=== PATIENT | female | born 1970 | race Caucasian/White ===

== ENCOUNTER 2017-03-27 13:01 | Emergency (ER) | payer SELFPAY ==
[~2017-03-27] VITALS: Ht 175.3 cm; Wt 63.0 kg
[2017-03-27 13:03] VITALS: BP 113/57; PULSE 86; RESP 18; TEMP 97.7; O2SAT 100
[2017-03-27] MEDS ORDERED: SODIUM CHLORIDE 0.9% FLUSH 10 ML FLUSH IVF PRN (13:45)
[2017-03-27] MEDS ORDERED: HYDROmorphone HCL PF 1 MG/ML VIAL IV PUSH ONE (13:45)
[2017-03-27] MEDS ORDERED: ONDANSETRON HCL 4 MG/2 ML VIAL IV PUSH ONE (13:45)
--- NOTE | 2017-03-27 13:45 | PD ---
HPI . Bleeding in Chief Complaint: Related Problem Time Seen by Provider: 13:14 Travel History International Travel<30 days: No Contact w/Intl Traveler<30days: No Traveled to known affect area: No History of Present Illness HPI This patient presents with the chief complaint of heavy vaginal bleeding in . She states that she is approximately 8 weeks . She states that she successfully just had some spotting this morning but that the spotting quickly became heavy bleeding. It is associated with pelvic cramping. She rates the pain 9/10. No modifying factors. PFSH Past Medical History Asthma: Yes ("slight") Anxiety: Yes Diminished Hearing: No Headaches: Yes Musculoskeletal: Yes (RIGHT HIP,FEMUR, ANKLE FX, chronic back pain) Respiratory: Yes (asthma) Immunizations Current: Yes Migraines: Yes ?: Menopausal: Yes : 1 Para: 1 Miscarriage: 0 : 0 Past Surgical History Joint Replacement: Yes (RIGHT HIP) Other Surgery: Yes (1987,fractured femur,harsha placed harsha removed in 2006) Social History Alcohol Use: No Tobacco Use: Yes (1ppd) Substance Use: No Allergies-Medications (Allergen,Severity, Reaction): Coded Allergies: diphenhydramine (Unverified Allergy, Severe, "liquid benadryl,difficulty breathing", 03/27/17) morphine (Unverified Adverse Reaction, Severe, nausea, 03/27/17) Reported Meds & Prescriptions Reported Meds & Active Scripts Active No Active Prescriptions or Reported Medications Review of Systems Except as stated in HPI: all other systems reviewed are Neg Genitourinary: Positive: Pelvic Pain, Vaginal Bleeding Physical Exam Narrative GENERAL: Awake and alert and in no acute distress. SKIN: Good color and capillary refill. HEAD: Normocephalic/atraumatic. EYES: Pupils are equal. Extraocular movements are intact. NECK: Supple. CARDIOVASCULAR: Regular rate and rhythm. RESPIRATORY: Nonlabored respirations. DEHYDRATION UNIT OPERATOR: Blood and blood clots in the vaginal vault. Os is closed. Positive cervical motion tenderness. Tender in the left adnexal/uterine area MUSCULOSKELETAL: Atraumatic NEUROLOGICAL: Nonfocal PSYCHIATRIC: Appropriate mood and affect. Data Data Last Documented VS Vital Signs Date Time Temp Pulse Resp B/P (MAP) Pulse Ox O2 Delivery O2 Flow Rate FiO2 03/27/17 13:03 97.7 86 18 113/57 (75) 100 Room Air Orders Orders Beta Hcg (Quant/Titer) (03/27/17 13:32) Us Pelvis (Ques Pr/Ect)W Trans (03/27/17 ) Urinalysis - C+S If Indicated (03/27/17 13:32) Iv Access Insert/Monitor (03/27/17 13:32) Sodium Chloride 0.9% Flush (Ns Flush) (03/27/17 13:45) Ed Urine Pregnancytest Poc (03/27/17 13:32) Ed Poc Ultrasound (03/27/17 13:32) Ondansetron Inj (Zofran Inj) (03/27/17 13:45) Hydromorphone Pf Inj (Dilaudid Pf Inj) (03/27/17 13:45) Hydromorphone Pf Inj (Dilaudid Pf Inj) (03/27/17 14:15) Ed Discharge Order (03/27/17 16:48) Labs Laboratory Tests Test 03/27/17 13:15 03/27/17 13:45 Urine Color YELLOW Urine Turbidity CLEAR Urine pH 5.5 Urine Specific [place] 1.024 Urine Protein TRACE mg/dL Urine Glucose (UA) NEG mg/dL Urine Ketones NEG mg/dL Urine Occult Blood LARGE Urine Nitrite NEG Urine Bilirubin NEG Urine Urobilinogen LESS THAN 2.0 MG/DL Urine Leukocyte Esterase NEG Urine RBC /hpf Urine WBC 2 /hpf Urine Squamous Epithelial Cells 1 /hpf Urine Mucus FEW /lpf Microscopic Urinalysis Comment CULT NOT INDICATED Human Chorionic Gonadotropin, Quant [id number] MIU/ML MDM Medical Decision Making Medical Screen Exam Complete: Yes Emergency Medical Condition: Yes Medical Record Reviewed: Yes (she is O+) Differential Diagnosis Differential diagnosis of vaginal bleeding includes but is not limited to dysfunctional uterine bleeding, normal menstrual cycle, ectopic , spontaneous AB, PID. Narrative Course This patient presents with heavy vaginal bleeding. She is being worked up for possible miscarriage or ectopic. UA is negative for infection. Quant 25K. US pending. Verbal report from the chemical treatment plant technician is that there is no intrauterine seen. She reports that she was able to adequately visualize the left adnexal area and that there is a small cyst but no ectopic. This patient has most likely had a spontaneous AB. I will have her follow-up in 2 days for a repeat quantitative hCG. This patient is not interested in waiting for the formal ultrasound report. Procedures Procedure Narrative Emergency Department Pelvic ultrasound was performed with patient consent. The curvilinear probe was used in the transverse and sagittal views within the suprapubic region revealing no intrauterine . Diagnosis Primary Impression: Spontaneous miscarriage Referrals: [facility] Patient Instructions: General Instructions, Miscarriage (DC) Additional Instructions: Follow-up for repeat blood test in 2 days Scripts No Active Prescriptions or Reported Meds Disposition: 01 DISCHARGE HOME Condition: Stable Sarai Cuellar MD Mar 27, 2017 13:45
--- NOTE | 2017-03-27 13:45 | PD ---
HPI . Bleeding in Chief Complaint: Related Problem Time Seen by Provider: 13:14 Travel History International Travel<30 days: No Contact w/Intl Traveler<30days: No Traveled to known affect area: No History of Present Illness HPI This patient presents with the chief complaint of heavy vaginal bleeding in . She states that she is approximately 8 weeks . She states that she successfully just had some spotting this morning but that the spotting quickly became heavy bleeding. It is associated with pelvic cramping. She rates the pain 9/10. No modifying factors. PFSH Past Medical History Asthma: Yes ("slight") Anxiety: Yes Diminished Hearing: No Headaches: Yes Musculoskeletal: Yes (RIGHT HIP,FEMUR, ANKLE FX, chronic back pain) Respiratory: Yes (asthma) Immunizations Current: Yes Migraines: Yes ?: Menopausal: Yes : 1 Para: 1 Miscarriage: 0 : 0 Past Surgical History Joint Replacement: Yes (RIGHT HIP) Other Surgery: Yes (1987,fractured femur,harsha placed harsha removed in 2006) Social History Alcohol Use: No Tobacco Use: Yes (1ppd) Substance Use: No Allergies-Medications (Allergen,Severity, Reaction): Coded Allergies: diphenhydramine (Unverified Allergy, Severe, "liquid benadryl,difficulty breathing", 03/27/17) morphine (Unverified Adverse Reaction, Severe, nausea, 03/27/17) Reported Meds & Prescriptions Reported Meds & Active Scripts Active No Active Prescriptions or Reported Medications Review of Systems Except as stated in HPI: all other systems reviewed are Neg Genitourinary: Positive: Pelvic Pain, Vaginal Bleeding Physical Exam Narrative GENERAL: Awake and alert and in no acute distress. SKIN: Good color and capillary refill. HEAD: Normocephalic/atraumatic. EYES: Pupils are equal. Extraocular movements are intact. NECK: Supple. CARDIOVASCULAR: Regular rate and rhythm. RESPIRATORY: Nonlabored respirations. 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 Os is closed. Positive cervical motion tenderness. Tender in the left adnexal/uterine area MUSCULOSKELETAL: Atraumatic NEUROLOGICAL: Nonfocal PSYCHIATRIC: Appropriate mood and affect. Data Data Last Documented VS Vital Signs Date Time Temp Pulse Resp B/P (MAP) Pulse Ox O2 Delivery O2 Flow Rate FiO2 03/27/17 13:03 97.7 86 18 113/57 (75) 100 Room Air Orders Orders Beta Hcg (Quant/Titer) (03/27/17 13:32) Us Pelvis (Ques Pr/Ect)W Trans (03/27/17 ) Urinalysis - C+S If Indicated (03/27/17 13:32) Iv Access Insert/Monitor (03/27/17 13:32) Sodium Chloride 0.9% Flush (Ns Flush) (03/27/17 13:45) Ed Urine Pregnancytest Poc (03/27/17 13:32) Ed Poc Ultrasound (03/27/17 13:32) Ondansetron Inj (Zofran Inj) (03/27/17 13:45) Hydromorphone Pf Inj (Dilaudid Pf Inj) (03/27/17 13:45) Hydromorphone Pf Inj (Dilaudid Pf Inj) (03/27/17 14:15) Ed Discharge Order (03/27/17 16:48) Labs Laboratory Tests Test 03/27/17 13:15 03/27/17 13:45 Urine Color YELLOW Urine Turbidity CLEAR Urine pH 5.5 Urine Specific [place] 1.024 Urine Protein TRACE mg/dL Urine Glucose (UA) NEG mg/dL Urine Ketones NEG mg/dL Urine Occult Blood LARGE Urine Nitrite NEG Urine Bilirubin NEG Urine Urobilinogen LESS THAN 2.0 MG/DL Urine Leukocyte Esterase NEG Urine RBC /hpf Urine WBC 2 /hpf Urine Squamous Epithelial Cells 1 /hpf Urine Mucus FEW /lpf Microscopic Urinalysis Comment CULT NOT INDICATED Human Chorionic Gonadotropin, Quant [id number] MIU/ML MDM Medical Decision Making Medical Screen Exam Complete: Yes Emergency Medical Condition: Yes Medical Record Reviewed: Yes (she is O+) Differential Diagnosis Differential diagnosis of vaginal bleeding includes but is not limited to dysfunctional uterine bleeding, normal menstrual cycle, ectopic , spontaneous AB, PID. Narrative Course This patient presents with heavy vaginal bleeding. She is being worked up for possible miscarriage or ectopic. UA is negative for infection. Quant 25K. US pending. Verbal report from the physics technical officer is that there is no intrauterine seen. She reports that she was able to adequately visualize the left adnexal area and that there is a small cyst but no ectopic. This patient has most likely had a spontaneous AB. I will have her follow-up in 2 days for a repeat quantitative hCG. This patient is not interested in waiting for the formal ultrasound report. Procedures Procedure Narrative Emergency Department Pelvic ultrasound was performed with patient consent. The curvilinear probe was used in the transverse and sagittal views within the suprapubic region revealing no intrauterine . Diagnosis Primary Impression: Spontaneous miscarriage Referrals: [facility] Patient Instructions: General Instructions, Miscarriage (DC) Additional Instructions: Follow-up for repeat blood test in 2 days Scripts No Active Prescriptions or Reported Meds Disposition: 01 DISCHARGE HOME Condition: Stable Sarai Cuellar MD Mar 27, 2017 13:45
[2017-03-27 14:09] LABS: BILIRUBIN, URINE NEG (NEG); BLOOD, URINE LARGE (NEG); GLUCOSE,URINE NEG (NEG); KETONE, URINE NEG (NEG); MUCUS URINE FEW /lpf (OCC); NITRITE,URINE NEG (NEG); PH, URINE 5.5 (5.0-8.5); SQUAMOUS EPITHELIAL CELL URINE 1 /hpf (0-5); URINE COLOR YELLOW (YELLW/STRAW); URINE LEUKOCYTE ESTERASE NEG (NEG)
[2017-03-27] MEDS ORDERED: HYDROmorphone HCL PF 2 MG/ML VIAL IV PUSH ONE (14:15)
--- NOTE | 2017-03-27 17:18 | RADRPT ---
EXAM DATE/TIME: 03/27/2017 16:10 [place] COMPARISON: No previous studies available for comparison. INDICATIONS : Pain and bleeding with . LAB(S): Beta-hC MEDICAL HISTORY : . Anxiety. Asthma. Miscarriage. Ovarian cysts. SURGICAL HISTORY : Right femur fracture repair/harsha placement. Right hip replacement. ENCOUNTER: Initial ACUITY: 1 day PAIN SCORE: 9/10 LOCATION: Bilateral pelvis MEASUREMENTS: UTERUS: 10.6 x 5.8 x 4.8 cm ENDOMETRIAL STRIPE: 17 mm RIGHT OVARY: 2.4 x 2.1 x 2.0 cm LEFT OVARY: 4.3 x 2.4 x 2.3 cm FREE FLUID: Yes Trace amount in posterior cul de sac. CROWN RUMP LENGTH: Non visualized. = WKS DAYS FHR: Non visualized. BPM FINDINGS: UTERUS: The myometrium has homogeneous echotexture without mass. Endometrial stripe is somewhat heterogeneou s but I do not see a gestational sac despite the elevated beta hCG. Dilated vascular structures adjac ent to the left side of the uterus probably represent varicosities. RIGHT OVARY: Ovary contains no mass or significant cystic lesion. LEFT OVARY: Dominant, somewhat complex 2.4 x 2.0 cm cyst in the midportion of the left ovary. MISCELLANEOUS: Trace free fluid in the cul-de-sac. CONCLUSION: 1. Despite the elevated beta hCG, I do not see findings of a intrauterine gestational sac. Findings c ould represent a completed . No adnexal mass lesions to suggest ectopic . 2. Probable corpus luteum in the left ovary. 3. Dilated vascular structures to the left of the uterus probably represent pelvic varicosities. Chandler Jules MD on March 27, 2017 at 17:12 Board Certified Radiologist. This report was verified electronically.
== END 2017-03-27 17:18 | disposition home or self-care (01) ==
LOC: NEPD 13:01
DX: O03.9 Complete or unspecified spontaneous abortion without complication (principal); J45.909 Unspecified asthma, uncomplicated; Z88.5 Allergy status to narcotic agent; Z88.8 Allergy status to other drugs, medicaments and biological substances; Z3A.01 Less than 8 weeks gestation of pregnancy; Z34.91 Encounter for supervision of normal pregnancy, unspecified, first trimester
CPT/HCPCS: 76700; 76817; 81001; 84702; 84703; 96374; 96375; 99285; J1170; J2405